=== PATIENT | male | born 1985 | race Caucasian/White ===

== ENCOUNTER 2021-12-06 10:35 | Emergency (ER) | payer OTHER ==
[~2021-12-06] VITALS: Ht 175.3 cm; Wt 81.0 kg
[2021-12-06 10:46] VITALS: BP 150/97
[2021-12-06] MEDS ORDERED: IBUPROFEN 600MG TABLET PO ONE (11:30)
[2021-12-06] MEDS ORDERED: IBUP-2029 MT (12:08)
== END 2021-12-06 12:40 | disposition home or self-care (01) ==
LOC: ER 10:35
DX: M79.674 Pain in right toe(s) (principal)
CPT/HCPCS: 73660; 99283; Z7610